=== PATIENT | male | born 1975 | race Caucasian/White ===

== ENCOUNTER 2019-05-11 09:20 | Inpatient (IN) | payer MEDICAID ==
[~2019-05-11] VITALS: Ht 182.9 cm; Wt 55.5 kg
[2019-05-11] VITALS (13 sets, daily range): BP systolic 94–125; BP diastolic 60–89; BMI 16.1
[2019-05-11] MEDS ORDERED: HUMALOG 30100 UNITS/ SC (09:25)
[2019-05-11] MEDS ORDERED: LEVEMIR IN100 UNITS/ SC (09:26)
--- NOTE | 2019-05-11 10:02 | NUR ---
UNABLE TO AUSCULTATE FHT'S VIA DOPPLER. DR LUNA NOTIFIED
[2019-05-11 10:09] LABS: BASOPHILS 0.2 % (0-2); EOSINOPHILS 0.9 % (0-7); HEMATOCRIT 43.1 % (42.0-54.0); HEMOGLOBIN 15.7 g/dL (13.5-17.5); IMMATURE GRANULOCYTES 0.6 % (0-5); LYMPHOCYTES 24.4 % (15-50); MCH 33.1 pg (26.0-34.0); MCHC 36.4 g/dL (31.0-37.0); MCV 90.9 fL (80.0-100.0); MEAN PLATELET VOLUME 9.5 fL (7.4-10.4); MONOCYTES 5.4 % (2-11); NEUTROPHILS 68.5 % (40-80); PLATELET COUNT 263 10x3/uL (130-400); RBC 4.74 10x6/uL (4.20-6.10); WBC 9.3 10x3/uL (4.8-10.8)
[2019-05-11 10:23] LABS: APPEARANCE CLEAR (CLEAR); BILIRUBIN NEGATIVE (NEGATIVE); COLOR YELLOW (YELLOW); GLUCOSE 1000 mg/dL (NEGATIVE); KETONE LARGE mg/dL (NEGATIVE); NITRITE NEGATIVE (NEGATIVE); PROTEIN NEGATIVE (NEGATIVE); SPECIFIC GRAVITY 1.015 (1.005-1.020); UROBILINOGEN NORMAL (NORMAL)
[2019-05-11 10:24] LABS: ALBUMIN 3.9 g/dL (3.4-5.0); ALKALINE PHOSPHATASE 73 U/L (46-116); ALT (SGPT) 22 U/L (10-68); BILIRUBIN - TOTAL 0.38 mg/dL (0.2-1.3); CALCIUM 9.1 mg/dL (8.5-10.1); CARBON DIOXIDE 23.1 mmol/L (21.0-32.0); CHLORIDE - SERUM 93 mmol/L (98-107); CREATININE - SERUM 0.7 mg/dL (0.6-1.3); POTASSIUM - SERUM 4.6 mmol/L (3.5-5.1); PROTEIN - SERUM 6.9 g/dL (6.4-8.2); SODIUM 130 mmol/L (136-145); UREA NITROGEN 11 mg/dL (7-18); eGFR NON AFRICAN AMERICAN > 90 mL/min (90-120)
[2019-05-11 10:28] LABS: CALC OSMOLALITY 283 mosm/kg (275-300); GLUCOSE 522 mg/dL (74-106)
--- NOTE | 2019-05-11 13:54 | NUR ---
PT ARRIVED TO UNIT ATTACHED TO MONITORING EQUIPMENT, CALLED DR GAMING TO NOTIFY OF FSBS 305 AND NO ORDERS. ORDERS FOR DKA PROTOCOL RECIEVED
[2019-05-11 16:24] LABS: CALCIUM 8.4 mg/dL (8.5-10.1); CARBON DIOXIDE 25.6 mmol/L (21.0-32.0); CHLORIDE - SERUM 100 mmol/L (98-107); SODIUM 136 mmol/L (136-145); UREA NITROGEN 10 mg/dL (7-18)
[2019-05-11 16:27] LABS: CALC OSMOLALITY 276 mosm/kg (275-300); CREATININE - SERUM 0.4 mg/dL (0.6-1.3); GLUCOSE 203 mg/dL (74-106); POTASSIUM - SERUM 3.4 mmol/L (3.5-5.1); eGFR NON AFRICAN AMERICAN > 90 mL/min (90-120)
--- NOTE | 2019-05-11 16:39 | NUR ---
NOTIFIED DR GAMING OF ANION GAP AND FSBS, ORDERS TO CONTINUE INSULIN GTT AND START DIABETIC DIET
--- NOTE | 2019-05-11 17:39 | NUR ---
ALL ABGS CALLED TO DR MARC, NO NEW ORDERS
[2019-05-11 18:41] LABS: UDS - AMPHET NEGATIVE QUAL (NEGATIVE); UDS - BARB NEGATIVE QUAL (NEGATIVE); UDS - BENZO NEGATIVE QUAL (NEGATIVE); UDS - COCAINE NEGATIVE QUAL (NEGATIVE); UDS - OPIATE NEGATIVE QUAL (NEGATIVE); UDS - PCP NEGATIVE QUAL (NEGATIVE); UDS - THC NEGATIVE QUAL (NEGATIVE)
--- NOTE | 2019-05-11 19:00 | NUR ---
BEDSIDE REPORT AND SHIFT ASSESSMENT COMPLETE. VSS, NO SIGNS OF ACUTE DISTRESS NOTED. PT REQUESTING FOOD, INFORMED OF NPO STATUS. STATED HE HAD FOOD EARLIER JUST WANTS A SNACK, I TOLD HIM I WOULD LOOK AT ORDERS AND MD NOTES. DENIES ANY OTHER NEEDS AT THIS TIME. CALL LIGHT IN REACH, WILL MONITOR.
[2019-05-11 20:07] LABS: CHLORIDE - SERUM 102 mmol/L (98-107); GLUCOSE 181 mg/dL (74-106); POTASSIUM - SERUM 3.5 mmol/L (3.5-5.1); SODIUM 137 mmol/L (136-145)
[2019-05-11 20:09] LABS: CALC OSMOLALITY 278 mosm/kg (275-300); CREATININE - SERUM 0.6 mg/dL (0.6-1.3); UREA NITROGEN 13 mg/dL (7-18); eGFR NON AFRICAN AMERICAN > 90 mL/min (90-120)
--- NOTE | 2019-05-11 20:45 | NUR ---
LAB RESULTS RECEIVED, ENRICO PERALES APN PAGED AND RETURNED CALL. NEW ORDERS RECEIVED TO CHANGE IV FLUIDS AND ADVANCE TO DIABETIC DIET TOLERATED.
--- NOTE | 2019-05-11 21:30 | NUR ---
PT AMBULATED TO BATHROOM AND BACK TO HELP WITH NO ASSITANCE.
--- NOTE | 2019-05-11 23:00 | NUR ---
REASSESSMENT COMPLETE, SEE FLOWSHEET. INSULIN GTT TITRATED PER FLOWSHEET. VSS, NO SIGNS OF ACUTE DISTRESS NOTED. WILL MONITOR.
[2019-05-12] VITALS (15 sets, daily range): BP systolic 100–130; BP diastolic 63–88
--- NOTE | 2019-05-12 01:00 | NUR ---
PT SLEEPING. VSS.
--- NOTE | 2019-05-12 03:00 | NUR ---
REASSESSMENT COMPLETE, SEE FLOWSHEET. PT RESTING COMFORTABLY IN BED, DENIES ANY NEEDS AT THIS TIME.
[2019-05-12 04:50] LABS: BASOPHILS 0.1 % (0-2); EOSINOPHILS 2.1 % (0-7); HEMATOCRIT 40.3 % (42.0-54.0); HEMOGLOBIN 14.4 g/dL (13.5-17.5); IMMATURE GRANULOCYTES 0.7 % (0-5); LYMPHOCYTES 35.1 % (15-50); MCH 32.4 pg (26.0-34.0); MCHC 35.7 g/dL (31.0-37.0); MCV 90.8 fL (80.0-100.0); MEAN PLATELET VOLUME 9.5 fL (7.4-10.4); MONOCYTES 7.5 % (2-11); NEUTROPHILS 54.5 % (40-80); PLATELET COUNT 234 10x3/uL (130-400); RBC 4.44 10x6/uL (4.20-6.10); WBC 8.9 10x3/uL (4.8-10.8)
[2019-05-12 05:06] LABS: ALBUMIN 3.1 g/dL (3.4-5.0); ALKALINE PHOSPHATASE 52 U/L (46-116); ALT (SGPT) 19 U/L (10-68); BILIRUBIN - TOTAL 0.27 mg/dL (0.2-1.3); CALC OSMOLALITY 279 mosm/kg (275-300); CALCIUM 8.4 mg/dL (8.5-10.1); CARBON DIOXIDE 29.1 mmol/L (21.0-32.0); CHLORIDE - SERUM 102 mmol/L (98-107); CREATININE - SERUM 0.6 mg/dL (0.6-1.3); GLUCOSE 149 mg/dL (74-106); MAGNESIUM - SERUM 1.7 mg/dL (1.8-2.4); PHOSPHOROUS 4.3 mg/dL (2.5-4.9); POTASSIUM - SERUM 3.5 mmol/L (3.5-5.1); PROTEIN - SERUM 5.6 g/dL (6.4-8.2); SODIUM 138 mmol/L (136-145); UREA NITROGEN 16 mg/dL (7-18); eGFR NON AFRICAN AMERICAN > 90 mL/min (90-120)
[2019-05-12 05:41] LABS: KETONE - SERUM SMALL mg/dL (NEGATIVE)
--- NOTE | 2019-05-12 07:00 | NUR ---
REPORT RECEVIED FROM THE OFF GOING RN. SEE ASSESSMENT IN THE PTS FLOW SHEET. VSS. LABS REVIEWED. BREAKFAST TRAY PROVIDED PER ORDERS. FSBS BEING CHECKED Q1 HOUR PER ORDERS. SEE INSULIN GTT IN FLOW SHEET. PT REQUESED ANOTHER MEAL TRAY AND IT WAS PROVIDED. PT ADMITS HAVING A DRUG ISSUE (METH). PT MENTIONED MULTIPLE TIMES THAT HE IS TRYING TO BETTER HIS LIFE AND SEEK HELP WITH A REHAB CENTER. CALL LIGHT IN REACH. WILL CONT POC.
[2019-05-12 08:31] LABS: CALC OSMOLALITY 275 mosm/kg (275-300); CALCIUM 8.9 mg/dL (8.5-10.1); CARBON DIOXIDE 28.4 mmol/L (21.0-32.0); CHLORIDE - SERUM 102 mmol/L (98-107); CREATININE - SERUM 0.6 mg/dL (0.6-1.3); GLUCOSE 157 mg/dL (74-106); POTASSIUM - SERUM 3.7 mmol/L (3.5-5.1); SODIUM 136 mmol/L (136-145); UREA NITROGEN 15 mg/dL (7-18); eGFR NON AFRICAN AMERICAN > 90 mL/min (90-120)
--- NOTE | 2019-05-12 09:17 | NUR ---
DENIES NEEDS/PAIN AT THIS TIME. VSS. SEE INSULIN FLOW SHEET FOR ISULIN GTT. WILL CONT POC.
--- NOTE | 2019-05-12 10:19 | NUR ---
SPOKE WITH DR GAMING ABOUT THE PTS INSULIN. LANTUS 20 UNITS, INTERMEDIATE SS Q3H AND TO IV FLUIDS.
--- NOTE | 2019-05-12 12:00 | NUR ---
RECEIVED REPORT ON PATIENT AND ASSUMED CARE. PATIENT ALERT AND ORIENTED X 4, VSS. IV 20 GA TO LEFT FA NSL, POSITIVE BLOOD RETURN AND FLUSHES EASILY. CM - SR, NO ECTOPY NOTED. BBS - CLEAR AND EQUAL ON RA.
--- NOTE | 2019-05-12 12:40 | NUR ---
PATIENT ATE 100% OF LUNCH TRAY. VSS. NO NEEDS AT THIS TIME.
[2019-05-12 12:56] LABS: CALC OSMOLALITY 272 mosm/kg (275-300); CALCIUM 8.9 mg/dL (8.5-10.1); CARBON DIOXIDE 30.3 mmol/L (21.0-32.0); CHLORIDE - SERUM 100 mmol/L (98-107); CREATININE - SERUM 0.6 mg/dL (0.6-1.3); GLUCOSE 107 mg/dL (74-106); POTASSIUM - SERUM 3.6 mmol/L (3.5-5.1); SODIUM 136 mmol/L (136-145); UREA NITROGEN 15 mg/dL (7-18); eGFR NON AFRICAN AMERICAN > 90 mL/min (90-120)
--- NOTE | 2019-05-12 14:43 | NUR ---
REPORT CALLED TO [facility]. TRANSPORT VIA WHEEL CHAIR. BELONGINGS BROUGHT WITH PATIENT.
--- NOTE | 2019-05-12 15:07 | NUR ---
IV WRAPPED. PT CURRENTLY TAKING A SHOWER. PT PLEASANT AND DENIES ANY FURTHER NEEDS AT THIS TIME. NO S/S OF DISTRESS NOTED. WILL CTM.
--- NOTE | 2019-05-12 15:44 | NUR ---
RECEIVED ORDERS FROM SWATHI WONG TO CHANGE Q3H FS TO ACHS. WILL CHANGE ORDERS.
--- NOTE | 2019-05-12 16:24 | NUR ---
FSBS @8610 WAS 412. SWATHI WONG NOTIFIED. 20UNITS OF INSULIN ADMININSTERED. WILL CTM.
--- NOTE | 2019-05-12 19:21 | NUR ---
REPORT RECEIVED, WILL CONTINUE POC. PATIENT IS AAOX4, UP AD [place], SITTING UP IN BED. PATIENT REQUESTING LANDRY CRACKERS AND COFFEE. NO S/S OF DISTRESS OBSERVED, RR EVEN AND UNLABORED ON ROOM AIR. PATIENT DENIES FURTHER NEEDS AT THIS TIME. CL IN REACH, BED LOCKED AND LOWERED. WILL CTM.
[2019-05-13 00:20] VITALS: BP 111/81
[2019-05-13 04:47] VITALS: BP 118/74
--- NOTE | 2019-05-13 07:45 | NUR ---
PT REQUESTED ADDITIONAL BREAKFAST. ORDERED EXTRA TRAY. BED IS IN LOW POSITION. CALL LIGHT IS IN REACH. PATIENT DENIES ANY ADDITIONAL NEEDS AT THIS TIME
[2019-05-13 10:02] VITALS: BP 113/76
[2019-05-13 12:43] VITALS: BP 106/61
--- NOTE | 2019-05-13 14:29 | MORECARE ---
CASE MANAGEMENT DISCHARGE SUMMARY PATIENT: JUAN DANIEL TARANGO UNIT: [id number] ADM DATE: 05/11/19 AGE: 43 : 73 SEX: M ROOM/BED: D.2138 AUTHOR: EVERETTE OLSON PHYSICIAN: REFERRING PHYSICIAN: CLARA GAMING MD DATE OF SERVICE: 05/13/19 Discharge Plan Patient Name: JUAN DANIEL TARANGO [facility] [facility] 1975 Planned Disposition: Other Type of Facility Anticipated Discharge Date: 05/13/19 Discharge Date: Expected LOS: 2 Initial Reviewer: [email or web address] Initial Review Date: 05/13/2019 Generated: 05/13/19 3:29 pm Patient Name: JUAN DANIEL TARANGO Page [id number] at 1429 All edits/amendments must be made on the electronic document DICTATION DATE: 05/13/191428 GAS STATION ATTENDANT: ALEXEI 05/13/191428 RPT#: [id number] DC DATE: STATUS: ADM IN [facility] [address] [place] [address] END OF REPORT
[2019-05-13] MEDS ORDERED: Lantus Insulin SC (14:34)
[2019-05-13] MEDS ORDERED: HUMULIN REG INJ [BKC SC (14:34)
[2019-05-13 14:46] VITALS: Ht 182.9 cm; Wt 55.5 kg
--- NOTE | 2019-05-13 15:32 | MORECARE ---
CASE MANAGEMENT DISCHARGE SUMMARY PATIENT: JUAN DANIEL TARANGO UNIT: [id number] ADM DATE: 05/11/19 AGE: 43 : 73 SEX: M ROOM/BED: D.2131 AUTHOR: EVERETTE OLSON PHYSICIAN: REFERRING PHYSICIAN: CLARA GAMING MD DATE OF SERVICE: 05/13/19 Discharge Plan Patient Name: JUAN DANIEL TARANGO [facility] [facility] 1975 Planned Disposition: Other Type of Facility Anticipated Discharge Date: 05/13/19 Discharge Date: Expected LOS: 2 Initial Reviewer: [email or web address] Initial Review Date: 05/13/2019 Generated: 05/13/19 4:32 pm DCPIA - Discharge Planning Initial Assessment Updated by [email or web address]: Juan José Ruvalcaba on 05/13/19 3:29 pm * Is the patient Alert and Oriented? Yes * How many steps to enter\exit or inside your home? * PCP DR. WOOD * Pharmacy [facility] [address] * Preadmission Environment Other * Other Environment [facility] * Facility Name [facility] * ADLs Independent * Equipment None * Other Equipment NO MEDICAL EQUIPMENT PROVIDER PREFERENCE * List name and contact numbers for known caregivers / representatives who currently or will assist patient after discharge: TANA MARTINEZ, WASH HOUSE SUPERVISOR, * Verbal permission to speak to the caregivers and representatives has been obtained from the patient. Yes * Community resources currently utilized None * Please name any agencies selected above. NONE * Additional services required to return to the preadmission environment? No * Can the patient safely return to the preadmission environment? Yes * Has this patient been hospitalized within the prior 30 days at any hospital? No Last DP export: 05/13/19 1:29 Patient Name: JUAN DANIEL TARANGO Page [phone] at 1532 All edits/amendments must be made on the electronic document DICTATION DATE: 05/13/191531 ROVING HAND: ALEXEI 05/13/191531 RPT#: [id number] DC DATE: STATUS: ADM IN [facility] [address] [place] [address] END OF REPORT
--- NOTE | 2019-05-13 16:01 | MORECARE ---
CASE MANAGEMENT DISCHARGE SUMMARY PATIENT: JUAN DANIEL TARANGO UNIT: [id number] ADM DATE: 05/11/19 AGE: 43 : 73 SEX: M ROOM/BED: D.0576 AUTHOR: EVERETTE OLSON PHYSICIAN: REFERRING PHYSICIAN: CLARA GAMING MD DATE OF SERVICE: 05/13/19 Discharge Plan Patient Name: JUAN DANIEL TARANGO Facility: [facility]:[place] : 1975 Planned Disposition: Other Type of Facility Anticipated Discharge Date: 05/13/19 Discharge Date: 05/13/2019 Expected LOS: 2 Initial Reviewer: [email or web address] Initial Review Date: 05/13/2019 Generated: 05/13/19 5:01 pm Comments DCP- Discharge Planning Updated by [email or web address]: Juan José Ruvalcaba on 05/13/19 2:[address] Patient Name: JUAN DANIEL TARANOG Admission Status: Elective Accout number: [id number] Admission Date: 05-11-2019 : 1975 Admission Diagnosis: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 CM MET WITH PT IN ROOM TO DISCUSS DISCHARGE PLANNING AND NEEDS. PT REPORTS LIVING AT [facility], [facility], PT HAS NO MEDICAL EQUIPMENT AND NO OUTSIDE SERVICES ASSISTING IN THE HOME. CM DISCUSSED AVAILABILITY OF HOME HEALTH, REHAB SERVICES AND MEDICAL EQUIPMENT. PT DENIES HAVING ABILITY TO GET HIS MEDICATIONS OR SUPPLIES FOR DIABETIC MANAGEMENT. PT HAS BEEN A DIABETIC FOR A FEW YEARS BUT BEGAN USING DRUGS AND DID NOT MANAGE HIS DIABETES OR USE TESTING SUPPLIES; PT HAS NO INCOME, NO FAMILY OR FRIENDS TO ASSIST, [facility] WILL NOT ASSIST WITH MEDICATIONS. PT HAS FILED FOR MEDICAID WITH THE HOSPITAL. CM CONFIRMED WITH KARAL OF [email or web address] WHO ADVISED PT SHOULD CANCEL [place] MEDICAID. CM NOTIFIED PT WHO REPORTS TANA MARTINEZ OT [facility] WILL PICK HIM UP FOR DISCHARGE HOME. CM CALLED KATHARINE OF [facility], , OBTAINED ESTIMATE FOR SUPPLIES: SYRINGES $21.99 METER AND LANCET DEVICE $21.23 LANCETS $3.82 200 TEST STRIPS $30.76 INSULIN PEN NEEDLES #100 $17.69 CASSIE OBTAINED [facility] FROM [facility]; GLOVE WRAPPER SANDY OBTAINED INSULIN FROM [facility] IT WAS MUCH LESS INEXPENSIVE THAN [facility]; LANTUS $289 PER VIAL, HUMULIN R $158.79 PER VIAL AND LOVALIN R, $148.16 PER VIAL. CM NOTIFIED PT AND PROVIDED PT WITH PHARMACY ADDRESS TO SOLAR PANEL INSTALLATION SUPERVISOR SUPPLIES. BEDSIDE NURSE INSTRUCTED ON INSULIN AND INSULIN PEN USE. PT PROVIDED WITH CONTACT INFORMATION FOR DEPARTMENT OF HUMAN SERVICES IN [facility] FOR PRIMARY CARE PHYSICIAN ASSIGNMENT IF MEDICAID IS APPROVED. CM SPOKE TO DR. WOOD WHO INFORMED CM AND COMMERCIAL COUNSEL NURSE THAT PT HE WILL SEE PT PRIMARY HE SEE'S ALL THE MEN AT [facility]. NO FURTHER DISCHARGE NEEDS IDENTIFIED. [employer] Scm Consultant: Juan José Ruvalcaba DCPIA - Discharge Planning Initial Assessment Updated by [email or web address]: Juan José Ruvalcaba on 05/13/19 3:29 pm * Is the patient Alert and Oriented? Yes * How many steps to enter\exit or inside your home? * PCP DR. WOOD * Pharmacy [facility] [address] * Preadmission Environment Other * Other Environment [facility] * Facility Name [facility]. * ADLs Independent * Equipment None * Other Equipment NO MEDICAL EQUIPMENT PROVIDER PREFERENCE * List name and contact numbers for known caregivers / representatives who currently or will assist patient after discharge: TANA MARTINEZ, FLEET DIRECTOR, * Verbal permission to speak to the caregivers and representatives has been obtained from the patient. Yes * Community resources currently utilized None * Please name any agencies selected above. NONE * Additional services required to return to the preadmission environment? No * Can the patient safely return to the preadmission environment? Yes * Has this patient been hospitalized within the prior 30 days at any hospital? No Last DP export: 05/13/19 2:32 Patient Name: JUAN DANIEL TARANGO Page [id number] at 1601 All edits/amendments must be made on the electronic document DICTATION DATE: 05/13/19 1601 DIVISIONAL STOREKEEPER: ALEXEI 05/13/19 1601 RPT#: [id number] DC DATE:05/13/19 STATUS: DIS IN [facility] [address] [place] [address] END OF REPORT
== END 2019-05-13 15:56 | disposition home or self-care (01) | DRG 638 ==
LOC: D.ER 09:20 → D.MS 11:33 → D.M2 11:33 → D.CVICU 12:40 → D.M2 05-12 14:45
PROVIDERS: Family Medicine; ADMIT Internal Medicine Nephrology; ATTEND Internal Medicine Nephrology
DX: E11.10 Type 2 diabetes mellitus with ketoacidosis without coma (principal); E87.1 Hypo-osmolality and hyponatremia; F17.213 Nicotine dependence, cigarettes, with withdrawal; E11.65 Type 2 diabetes mellitus with hyperglycemia; E11.40 Type 2 diabetes mellitus with diabetic neuropathy, unspecified